=== PATIENT | female | born 1975 | race Asian ===

== ENCOUNTER 2023-01-09 11:14 | Emergency (ER) | payer OTHER ==
[~2023-01-09] VITALS: Ht 149.9 cm; Wt 69.9 kg
[2023-01-09 11:18] VITALS: BP_SYST 114
--- NOTE | 2023-01-09 11:18 | NUR ---
RECEIVED PT FROM ANAID IGNACIO. PT BIBS FOR C/O SYNCOPE. BS 85, PT AAOX4, ON RA, DENIES N/V/D/C. SKIN WARM, INTACT. PULSES NORMAL. DENIES PAIN. SIDERAILS UP X2.
--- NOTE | 2023-01-09 11:20 | NUR ---
DR. REZA AT BEDSIDE TO ASSESS PT.
--- NOTE | 2023-01-09 11:45 | NUR ---
EKG OBTAINED, LABS OBTAINED. PT'S BS 85. URINE OBTAINED. ALL SAMPLES TAKEN TO LAB.
[2023-01-09 11:54] LABS: BASOPHILS # (AUTO) 0.1 K/uL (0.0-0.2); BASOPHILS % (AUTO) 0.6 % (0.0-2.0); EOSINOPHILS # (AUTO) 0.1 K/uL (0.0-0.4); EOSINOPHILS % (AUTO) 0.7 % (0.0-4.0); HEMATOCRIT 44.6 % (36-48); HEMOGLOBIN 14.8 g/dL (12.0-16.0); LYMPHOCYTES # (AUTO) 0.7 K/uL (1.0-5.5); LYMPHOCYTES % (AUTO) 6.2 % (20.5-51.5); MEAN CORPUSCULAR HEMOGLOBIN 32 pg (27-31); MEAN CORPUSCULAR HGB CONC 33 % (32-36); MEAN CORPUSCULAR VOLUME 97 fL (79.0-98.0); MONOCYTES # (AUTO) 0.9 K/uL (0.0-1.0); MONOCYTES % (AUTO) 7.8 % (1.7-9.3); NEUTROPHILS # (AUTO) 9.6 K/uL (1.8-7.7); NEUTROPHILS % (AUTO) 84.7 % (40.0-70.0); PLATELET COUNT (AUTO) 297 K/uL (130-430); RED BLOOD CELL COUNT(AUTO) 4.61 MIL/uL (4.2-6.2); RED CELL DISTRIBUTION WIDTH 14.4 % (9.0-15.0); WHITE BLOOD COUNT (AUTO) 11.4 K/uL (4.8-10.8)
[2023-01-09 12:05] LABS: ANION GAP 9 (5-15); CALCIUM 8.6 mg/dL (8.4-11.0); CHLORIDE 102 mmol/L (98-107); CREATININE 1.09 mg/dL (0.55-1.30); GFR AFRICAN AMERICAN 69 mL/min (>90); GLUCOSE 78 mg/dL (70-99); UREA NITROGEN, BLOOD 33 mg/dL (8-21)
[2023-01-09 12:07] LABS: INR 0.9 (0.8-1.2); PROTHROMBIN TIME 9.6 SECS (9.5-12.5)
[2023-01-09 12:14] LABS: ALANINE AMINOTRANSFERASE 44 U/L (12-78); ALBUMIN 3.8 g/dL (3.4-4.8); ASPARTATE AMINOTRANSFERASE 21 U/L (10-37); TOTAL BILIRUBIN 0.5 mg/dL (0.0-1.0)
--- NOTE | 2023-01-09 12:22 | NUR ---
PT TAKEN TO RADIOLOGY VIA FOR CT AND XRAY.
--- NOTE | 2023-01-09 13:04 | NUR ---
DR. REZA AT BEDSIDE TO DISCUSS POC.
[2023-01-09 13:08] VITALS: BP_SYST 142
--- NOTE | 2023-01-09 13:12 | NUR ---
Patient given written and verbal discharge instructions and verbalizes understanding. ER MD discussed with patient the results and treatment provided. Patient in stable condition. ID arm band removed. Patient educated on pain management and to follow up with PMD. Pain Scale 0/10 Opportunity for questions provided and answered. Medication side effect fact sheet provided.
== END 2023-01-09 13:12 | disposition home or self-care (01) ==
LOC: SED 11:14
DX: R55 Syncope and collapse (principal); R51.9 Headache, unspecified; E10.9 Type 1 diabetes mellitus without complications; Z79.899 Other long term (current) drug therapy
CPT/HCPCS: 36415; 70450-TC; 71045; 76376; 80053; 81025; 82962; 83605; 84484; 85025; 85610-TC; 85730-TC; 93005; 99285